=== PATIENT | female | born 1995 | race Caucasian/White ===

== ENCOUNTER 2016-11-29 02:02 | Emergency (ER) | payer BC ==
[2016-11-29 02:09] VITALS: BP 124/79; PULSE 88; TEMP 97.9; BMI 30.1
[2016-11-29] MEDS ORDERED: ACETAMINOPHEN 325 MG TABLET (FP) PO ONE (02:12)
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
== END 2016-11-29 02:22 | disposition home or self-care (01) ==
LOC: FER 02:02
DX: S00.01XA Abrasion of scalp, initial encounter (principal); W22.03XA Walked into furniture, initial encounter; Y93.89 Activity, other specified; Y92.9 Unspecified place or not applicable
CPT/HCPCS: 99282-25